=== PATIENT | female | born 1985 | race Caucasian/White ===

== ENCOUNTER 2017-09-09 11:17 | Emergency (ER) | payer MEDICAID ==
--- NOTE | 2017-09-09 12:04 | ER Document Report ---
ED Medical Screen (RME) - General Mode of Arrival: Ambulatory Information source: Patient TRAVEL OUTSIDE OF THE U.S. IN LAST 30 DAYS: No - HPI Patient complains to provider of: Headache Onset: This morning Associated Symptoms: Other - see notes above <KEATON SAUCEDO - Last Filed: 09/09/17 13:07> <KIANNAMARTI Trujillo - Last Filed: 09/09/17 21:05> - General Chief Complaint: Blood Pressure Problem Stated Complaint: HEADACHE Time Seen by Provider: 09/09/17 11:59 Notes: 32-year-old female (15 weeks; A2) with history of hypertension and preeclampsia (with previous ) presents to the ED complaining of posterior head pain, seeing black spots, and dizziness that started earlier this morning while at work. Patient is additionally complaining of vomiting. Patient's hypertension is being managed by her OB and is being prescribed methyldopa which was recently increased to twice a day on 08/30/2017. Patient's OB is Dr. Cedeño of [facility]. (KEATON SAUCEDO) - Related Data Allergies/Adverse Reactions: azithromycin [From Zithromax] Allergy (Verified 09/09/17 11:19) ibuprofen [From Motrin] Adverse Reaction (Verified 09/09/17 11:19) Vomiting Home Medications: Current Home Medications Methyldopa [Aldomet 250 mg Tablet] 1 tab PO BID 09/09/17 [History] Past Medical History - General Information source: Patient - Social History Frequency of alcohol use: None Drug Abuse: None - Past Medical History Cardiac Medical History: Reports: Hx Hypertension Denies: Hx Coronary Artery Disease, Hx Heart Attack Pulmonary Medical History: Denies: Hx Asthma, Hx Bronchitis, Hx COPD, Hx Pneumonia Neurological Medical History: Reports: Hx Migraine. Denies: Hx Cerebrovascular Accident, Hx Seizures Renal/ Medical History: Denies: Hx Peritoneal Dialysis Musculoskeltal Medical History: Denies Hx Arthritis Skin Medical History: Denies Hx MRSA Past Surgical History: Reports: Hx Genitourinary Surgery - rectum repair post delivery, Hx Orthopedic Surgery - left hand, Hx Tonsillectomy - Immunizations Immunizations up to date: Yes Hx Diphtheria, Pertussis, Tetanus Vaccination: Yes <KEATON SAUCEDO - Last Filed: 09/09/17 13:07> Review of Systems - Review of Systems Constitutional: No symptoms reported EENT: No symptoms reported, Other - seeing black spots Cardiovascular: See HPI, Dizziness Respiratory: No symptoms reported Gastrointestinal: See HPI, Vomiting Genitourinary: No symptoms reported Female Genitourinary: No symptoms reported Musculoskeletal: No symptoms reported Skin: No symptoms reported Hematologic/Lymphatic: No symptoms reported Neurological/Psychological: See HPI, Headaches -: Yes All other systems reviewed and negative <KEATON SAUCEDO - Last Filed: 09/09/17 13:07> Physical Exam - General General appearance: Alert In distress: None - HEENT Head: Normocephalic, Atraumatic Eyes: Normal Extraocular movements intact: Yes Pupils: PERRL - Respiratory Respiratory status: No respiratory distress Breath sounds: Normal - Cardiovascular Rhythm: Regular Heart sounds: Normal auscultation - Psychological Associated symptoms: Normal affect, Normal mood <KEATON SAUCEDO - Last Filed: 09/09/17 13:07> - Vital signs Vitals: Temp Pulse Resp BP Pulse Ox 98.4 F 110 H 20 155/105 H 100 09/09/17 11:21 09/09/17 11:21 09/09/17 11:21 09/09/17 11:21 09/09/17 11:21 Course - Laboratory Result Diagrams: 09/09/17 12:35 09/09/17 12:35 <KEATON SAUCEDO - Last Filed: 09/09/17 13:07> - Laboratory Result Diagrams: 09/09/17 12:35 09/09/17 12:35 <MARTI HUTCHISON - Last Filed: 09/09/17 21:05> - Re-evaluation Re-evalutation: 09/09/17 21:05 I personally performed the services described in the documentation, reviewed and edited the documentation which was dictated to the scribe in my presence, and it accurately records my words and actions. (MARTI HUTCHISON) - Vital Signs Vital signs: Temp Pulse Resp BP Pulse Ox 98.2 F 85 15 130/80 H 100 09/09/17 17:29 09/09/17 17:29 09/09/17 17:29 09/09/17 17:29 09/09/17 17:29 - Laboratory Laboratory results interpreted by me: 09/09/17 09/09/17 12:35 12:35 WBC 12.8 H Plt Count 146 L Seg Neutrophils % 78.8 H Absolute Neutrophils 10.1 H Carbon Dioxide 21 L Glucose 70 L Beta HCG, Quant 03284.00 H Doctor's Discharge <SAUCEDOKEATON - Last Filed: 09/09/17 13:07> <MARTI HUTCHISON H - Last Filed: 09/09/17 21:05> - Discharge Clinical Impression: Tension headache, High blood pressure, with 15 completed weeks gestation, Nausea & vomiting Condition: Stable Disposition: HOME, SELF-CARE Additional Instructions: Tension Headache Your problem has been diagnosed as muscle tension headache. This very common type of headache occurs because of tightness in the muscles of the head and neck. The cause may be neck or jaw joint problems, but most commonly the cause is emotional stress. The headache may last hours or days. The treatment of uncomplicated tension headaches is rest and pain medication. Often, the newer antiinflammatory pain medications are prescribed, as these also decrease the irritability of the painful tissues. Muscle relaxers , cold packs, or warm packs are sometimes helpful. Anti-anxiety medication or narcotics are sometimes needed temporarily, but are best avoided in the long run. Your doctor has evaluated your headache problem, and finds no evidence of a serious health problem as a cause for the headache. If your headache becomes more severe, or if new symptoms develop (such as fever, stiff neck, vomiting, or decreasing alertness) you should be re-examined by the physician. //////////////////////////////////////////////////////////////////////////////// //////////////////////////////////////////////////////////////////////////////// /////////////////// Continue your regular medications. Take Tylenol for your headache if needed. Your blood pressure is elevated this evening, then take an extra dose of your Aldomet. Get plenty of rest and sleep. Follow-up with your doctor if not continuing to improve. RETURN TO THE EMERGENCY ROOM IF ANY NEW OR WORSENING SYMPTOMS. Forms: Return to Work Referrals: CARLOS STINSON MD [Primary Care Provider] - Follow up as needed Scribe Documentation - Scribe Written by Scribe:: Carmen Whiting, 09/09/2017 1319 acting as scribe for :: Long <KEATON SAUCEDO - Last Filed: 09/09/17 13:07>
[2017-09-09 12:53] LABS: ABSOLUTE BASOPHILS # (AUTO) 0.1 10^3/uL (0.0-0.2); ABSOLUTE EOSINOPHILS # (AUTO) 0.1 10^3/uL (0.0-0.6); ABSOLUTE LYMPHOCYTES (AUTO) 1.8 10^3/uL (0.5-4.7); ABSOLUTE MONOCYTES (AUTO) 0.8 10^3/uL (0.1-1.4); ABSOLUTE NEUT (AUTO) 10.1 10^3/uL (1.7-8.2); BASOPHILS % (AUTO) 0.5 % (0-2); EOSINOPHILS % (AUTO) 0.6 % (0-6); HEMATOCRIT 37.6 % (36.0-47.0); HEMOGLOBIN 13.3 g/dL (12.0-15.5); HGB HCT DIFFERENCE 2.3; LYMPHOCYTES % (AUTO) 13.8 % (13-45); MEAN CORPUSCULAR HEMOGLOBIN 30.5 pg (27.0-33.4); MEAN CORPUSCULAR HGB CONC 35.4 g/dL (32.0-36.0); MEAN CORPUSCULAR VOLUME 86 fl (80-97); MONOCYTES % (AUTO) 6.3 % (3-13); RED BLOOD COUNT 4.37 10^6/uL (3.72-5.28); RED CELL DISTRIBUTION WIDTH 13.4 % (11.5-14.0); SEGMENTED NEUTROPHILS % (AUTO) 78.8 % (42-78); WHITE BLOOD COUNT 12.8 10^3/uL (4.0-10.5)
[2017-09-09 13:11] LABS: APPEARANCE,URINE SLIGHTLY-CLOUDY; BILIRUBIN,URINE NEGATIVE (NEGATIVE); GLUCOSE, URINE NEGATIVE (NEGATIVE); KETONES,URINE NEGATIVE (NEGATIVE); LEUKOCYTE ESTERASE,URINE NEGATIVE (NEGATIVE); NITRITE,URINE NEGATIVE (NEGATIVE); PROTEIN,URINE NEGATIVE (NEGATIVE); URINE SPECIFIC GRAVITY 1.009; UROBILINOGEN,URINE NEGATIVE mg/dL (<2.0)
[2017-09-09 13:19] LABS: ALANINE AMINOTRANSFERASE 35 U/L (9-52); ALBUMIN 4.1 g/dL (3.5-5.0); ALKALINE PHOSPHATASE 57 U/L (38-126); ANION GAP 14 (5-19); ASPARTATE AMINO TRANSFERASE 24 U/L (14-36); BILIRUBIN,DIRECT 0.2 mg/dL (0.0-0.4); BILIRUBIN,TOTAL 0.4 mg/dL (0.2-1.3); BLOOD UREA NITROGEN 8 mg/dL (7-20); CALCIUM 9.1 mg/dL (8.4-10.2); CARBON DIOXIDE 21 mmol/L (22-30); CHLORIDE 104 mmol/L (98-107); CREATININE RESULT 0.57 mg/dL (0.52-1.25); GLUCOSE 70 mg/dL (75-110); MAGNESIUM 1.8 mg/dL (1.6-2.3); POTASSIUM 4.1 mmol/L (3.6-5.0); TOTAL PROTEIN 6.7 g/dL (6.3-8.2)
[2017-09-09] MEDS ORDERED: PROCHLORPERAZINE EDISYLATE INJ 10 MG/2 ML VIAL IV ONE (14:59)
[2017-09-09] MEDS ORDERED: DIPHENHYDRAMINE HCL 50 MG/ML VIAL IV ONE (14:59)
[2017-09-09] MEDS ORDERED: DEXTROSE 5%-LACTATED RINGERS 1,000 ML IV ONE (15:00)
--- NOTE | 2017-09-09 15:10 | ER Document Report ---
ED Blood Pressure Problem - General Chief Complaint: Blood Pressure Problem Stated Complaint: HEADACHE Time Seen by Provider: 09/09/17 11:59 Mode of Arrival: Ambulatory Information source: Patient, Parent, [facility] Records Notes: This 32-year-old female patient who is approximately 15 weeks comes emergency room complaining of development after getting up this morning of blurred vision, dizziness, headache, nausea with vomiting which she attributes to her headache. She states her blood pressure has been running elevated since yesterday when it was 155/89. She had her Aldomet increased from 250 daily to twice daily on 08/30/2017. She was developing some petechiae about the neck, face and conjunctiva which she attributed to her elevated blood pressure. She did not realize the vomiting is the source of this petechia. The patient has a past history of being on blood pressure medication since age 19 which was probably when she was with her first child who was born 12 years ago. She reports preeclampsia diagnosis at that time but her blood pressure at that delivery was well over 206 she may well have actually been eclamptic. She has been on metoprolol for many years, but was changed to Aldomet with this . 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 The nausea is not bad at this time, the headache is to the back of her head. She goes to a [employer] [facility] in [place], [place]. She works in the [place] area. TRAVEL OUTSIDE OF THE U.S. IN LAST 30 DAYS: No - Related Data Allergies/Adverse Reactions: azithromycin [From Zithromax] Allergy (Verified 09/09/17 11:19) ibuprofen [From Motrin] Adverse Reaction (Verified 09/09/17 11:19) Vomiting Home Medications: Current Home Medications Methyldopa [Aldomet 250 mg Tablet] 1 tab PO BID 09/09/17 [History] Past Medical History - General Information source: Patient, Parent, [facility] Records - Social History Smoking Status: Former Smoker Cigarette use (# per day): No Chew tobacco use (# tins/day): No Smoking Education Provided: No Frequency of alcohol use: None Drug Abuse: None Lives with: Family Family History: Reviewed & Not Pertinent Patient has suicidal ideation: No Patient has homicidal ideation: No - Past Medical History Cardiac Medical History: Reports: Hx Hypertension Pulmonary Medical History: Reports: None EENT Medical History: Reports: None Neurological Medical History: Reports: Hx Migraine Endocrine Medical History: Reports: None Renal/ Medical History: Reports: None GI Medical History: Reports: None Musculoskeltal Medical History: Reports None Psychiatric Medical History: Reports: None Past Surgical History: Reports: Hx Genitourinary Surgery - rectum repair post delivery, Hx Orthopedic Surgery - left hand, Hx Tonsillectomy - Immunizations Immunizations up to date: Yes Hx Diphtheria, Pertussis, Tetanus Vaccination: Yes Review of Systems - Review of Systems Constitutional: No symptoms reported EENT: No symptoms reported Cardiovascular: No symptoms reported Respiratory: No symptoms reported Gastrointestinal: See HPI Female Genitourinary: - 15 weeks Musculoskeletal: No symptoms reported Skin: No symptoms reported Hematologic/Lymphatic: No symptoms reported Neurological/Psychological: Headaches Physical Exam - Vital signs Vitals: Temp Pulse Resp BP Pulse Ox 98.4 F 110 H 20 155/105 H 100 09/09/17 11:21 09/09/17 11:21 09/09/17 11:21 09/09/17 11:21 09/09/17 11:21 Interpretation: Hypertensive - General General appearance: Appears well, Alert In distress: None - HEENT Head: Normocephalic, Atraumatic, Tenderness - Occipital scalp muscles are tender to palpate Eyes: Normal Conjunctiva: Other - Slight petechia Pupils: PERRL Neck: Other - Very tender to palpate the upper posterior cervical muscles near the insertion to the skull. - Respiratory Respiratory status: No respiratory distress Breath sounds: Normal - Cardiovascular Rhythm: Regular Heart sounds: Normal auscultation Murmur: No - Abdominal Inspection: Gravid female Bowel sounds: Normal Tenderness: Nontender - Back Back: Normal - Extremities General upper extremity: Normal inspection General lower extremity: Normal inspection - Neurological Neuro grossly intact: Yes - Psychological Associated symptoms: Normal affect, Normal mood - Skin Skin Temperature: Warm Skin Moisture: Dry Skin Color: Normal Course - Re-evaluation Re-evalutation: 09/09/17 16:21 Headache is much better, blood pressure is down, she is hungry and anxious to go home. I have reviewed my feelings with her that the headache, the petechiae are not caused by the blood pressure. The blood pressure was probably elevated due to the headache as the pressure came down when we treated her headache. The petechiae was due to the vomiting and retching and I explained the pathophysiology behind that. - Vital Signs Vital signs: Temp Pulse Resp BP Pulse Ox 98.4 F 110 H 20 155/105 H 100 09/09/17 11:21 09/09/17 11:21 09/09/17 11:21 09/09/17 11:21 09/09/17 11:21 - Laboratory Result Diagrams: 09/09/17 12:35 09/09/17 12:35 Laboratory results interpreted by me: 09/09/17 09/09/17 12:35 12:35 WBC 12.8 H Plt Count 146 L Seg Neutrophils % 78.8 H Absolute Neutrophils 10.1 H Carbon Dioxide 21 L Glucose 70 L Beta HCG, Quant 18158.00 H Discharge - Discharge Clinical Impression: Tension headache, with 15 completed weeks gestation High blood pressure Qualifiers: Hypertension type: essential hypertension Qualified Code(s): I10 - Essential ( primary) hypertension Nausea & vomiting Qualifiers: Vomiting type: unspecified Vomiting Intractability: non-intractable Qualified Code(s): R11.2 - Nausea with vomiting, unspecified Condition: Stable Disposition: HOME, SELF-CARE Additional Instructions: Tension Headache Your problem has been diagnosed as muscle tension headache. This very common type of headache occurs because of tightness in the muscles of the head and neck. The cause may be neck or jaw joint problems, but most commonly the cause is emotional stress. The headache may last hours or days. The treatment of uncomplicated tension headaches is rest and pain medication. Often, the newer antiinflammatory pain medications are prescribed, as these also decrease the irritability of the painful tissues. Muscle relaxers , cold packs, or warm packs are sometimes helpful. Anti-anxiety medication or narcotics are sometimes needed temporarily, but are best avoided in the long run. Your doctor has evaluated your headache problem, and finds no evidence of a serious health problem as a cause for the headache. If your headache becomes more severe, or if new symptoms develop (such as fever, stiff neck, vomiting, or decreasing alertness) you should be re-examined by the physician. //////////////////////////////////////////////////////////////////////////////// //////////////////////////////////////////////////////////////////////////////// /////////////////// Continue your regular medications. Take Tylenol for your headache if needed. Your blood pressure is elevated this evening, then take an extra dose of your Aldomet. Get plenty of rest and sleep. Follow-up with your doctor if not continuing to improve. RETURN TO THE EMERGENCY ROOM IF ANY NEW OR WORSENING SYMPTOMS. Forms: Return to Work
[2017-09-09 17:31] VITALS: BP 130/80
== END 2017-09-09 17:15 | disposition home or self-care (01) ==
LOC: ER 11:17
DX: O10.912 Unspecified pre-existing hypertension complicating pregnancy, second trimester (principal); G44.209 Tension-type headache, unspecified, not intractable; O21.9 Vomiting of pregnancy, unspecified; Z3A.15 15 weeks gestation of pregnancy; Z88.3 Allergy status to other anti-infective agents; Z88.6 Allergy status to analgesic agent; Z79.84 Long term (current) use of oral hypoglycemic drugs
CPT/HCPCS: 99284; 96361; 96374; 96375; 36415; 84702; 83735; 85025; 80053; 81001; J1200; J0780

== ENCOUNTER 2019-11-25 14:52 | Emergency (ER) | payer MEDICAID, OTHER ==
--- NOTE | 2019-11-25 15:15 | ER Document Report ---
ED Hand/Wrist Injury - General Chief Complaint: Hand Injury Stated Complaint: RIGHT hand PINKY FINGER PAIN, SWELLING Time Seen by Provider: 11/25/19 15:09 Primary Care Provider: [facility] [Provider Group] - 11/26/19 CARLOS STINSON MD [NO LOCAL MD] - Follow up as needed Mode of Arrival: Ambulatory Information source: Patient Notes: 34-year-old female presented to ED for complaint of pain and swelling to the right hand radial side. She states she was outside in the yard playing punching a punching bag there was cemented into the ground. She punched really hard and now has pain and swelling down the fifth metacarpal and fifth phalanges. It is red and swollen. There is some pain to the fourth finger also. She is alert oriented respirations regular nonlabored speaking in full sentences. She states she did it about 1130 this morning. She states she has had ibuprofen 800 mg since she injured it. States she has been elevating and icing the injury. TRAVEL OUTSIDE OF THE [place] IN LAST 30 DAYS: No - HPI Injury to: Hand, Ring finger, Small finger Onset: This morning Where: [employer] [place] Timing: Better Quality of pain: Throbbing Severity: Moderate Pain Level: 4 Context: Blow - Punched a cemented in punching bag - Related Data Allergies/Adverse Reactions: azithromycin [From Zithromax] Allergy (Verified 09/09/17 11:19) ibuprofen [From Motrin] Adverse Reaction (Verified 09/09/17 11:19) Vomiting Past Medical History - General Information source: Patient - Social History Smoking Status: Current Every Day Smoker Cigarette use (# per day): Yes - 4 cigarettes a day Smoking Education Provided: Yes - 4 minutes Frequency of alcohol use: None Drug Abuse: None Occupation: [employer] 2 Lives with: Alone - With 2 children Family History: Reviewed & Not Pertinent Patient has suicidal ideation: No Patient has homicidal ideation: No - Past Medical History Cardiac Medical History: Reports: Hx Hypertension Pulmonary Medical History: Reports: None EENT Medical History: Reports: None Neurological Medical History: Reports: Hx Migraine Endocrine Medical History: Reports: None Renal/ Medical History: Reports: None Malignancy Medical History: Reports: None GI Medical History: Reports: None Musculoskeletal Medical History: Reports Hx Musculoskeletal Trauma - Left hand with surgery Skin Medical History: Reports None Psychiatric Medical History: Reports: None Traumatic Medical History: Reports: Hx Fractures - Left hand Infectious Medical History: Reports: None Past Surgical History: Reports: Hx Genitourinary Surgery - rectum repair post delivery, Hx Orthopedic Surgery - left hand steel thomas, Hx Tonsillectomy - Immunizations Immunizations up to date: Yes Hx Diphtheria, Pertussis, Tetanus Vaccination: Yes Review of Systems - Review of Systems Constitutional: No symptoms reported EENT: No symptoms reported Cardiovascular: No symptoms reported Respiratory: No symptoms reported Gastrointestinal: No symptoms reported Genitourinary: No symptoms reported Female Genitourinary: No symptoms reported Musculoskeletal: Other - Right hand fourth and fifth finger pain and swelling Skin: No symptoms reported Hematologic/Lymphatic: No symptoms reported Neurological/Psychological: No symptoms reported -: Yes All other systems reviewed and negative Physical Exam - Vital signs Vitals: Temp Pulse Resp BP Pulse Ox 97.9 F 92 18 161/114 H 98 11/25/19 14:53 11/25/19 14:53 11/25/19 14:53 11/25/19 14:53 11/25/19 14:53 Interpretation: Normal - General General appearance: Appears well, Alert - HEENT Head: Normocephalic, Atraumatic Eyes: Normal Pupils: PERRL - Respiratory Respiratory status: No respiratory distress Chest status: Nontender Breath sounds: Normal Chest palpation: Normal - Cardiovascular Rhythm: Regular Heart sounds: Normal auscultation Murmur: No - Abdominal Inspection: Normal Distension: No distension Bowel sounds: Normal Tenderness: Nontender Organomegaly: No organomegaly - Back Back: Normal, Nontender - Extremities General upper extremity: Normal color, Normal temperature General lower extremity: Normal inspection, Nontender, Normal color, Normal ROM, Normal temperature, Normal weight bearing. No: Lesly's sign Shoulder: Normal Arm: Normal Elbow: Normal Forearm: Normal Wrist: Normal Hand: Tender, Ecchymosis, No evidence of human bite, No evidence of FB, Swelling. No: Abrasion, Deformity, Dislocation, Instability, Laceration, Nail injury, Tendon deficit Hip: Normal - Neurological Neuro grossly intact: Yes Cognition: Normal Orientation: AAOx4 [place] Coma Scale Eye Opening: Spontaneous [place] Coma Scale Verbal: Oriented [place] Coma Scale Motor: Obeys Commands [place] Coma Scale Total: 15 Speech: Normal Motor strength normal: LUE, RUE, LLE, RLE Sensory: Normal - Psychological Associated symptoms: Normal affect, Normal mood - Skin Skin Temperature: Warm Skin Moisture: Dry Skin Color: Normal Course - Re-evaluation Re-evalutation: 11/25/19 16:04 X-ray discussed with patient and written report of x-ray given to patient. X- ray was shown to patient so she saw exactly where the break was. Patient was instructed she definitely needs to follow-up with orthopedics this may need surgical repair or at least further treatment. Patient was discharged home with a sixpack of [place] and a boxers splint with sling. Patient verbalized understanding and agreement with treatment plan. - Vital Signs Vital signs: Temp Pulse Resp BP Pulse Ox 97.8 F 96 16 158/102 H 99 11/25/19 16:19 11/25/19 16:19 11/25/19 16:19 11/25/19 16:19 11/25/19 16:19 - Diagnostic Test Radiology reviewed: Image reviewed, Reports reviewed Procedures - Immobilization Right Hand Time completed: 16:03 Pre-Proc Neuro Vasc Exam: Normal Immobilizer type: Ulnar - Boxer's splint, Sling Performed by: PCT Post-Proc Neuro Vasc Exam: Normal Alignment checked and good: No - Checked unchanged needs orthopedic referral Discharge - Discharge Clinical Impression: Fracture of fifth metacarpal bone Qualifiers: Encounter type: initial encounter Fracture type: closed Metacarpal location: shaft Fracture alignment: displaced Laterality: right Qualified Code(s): S62.326A - Displaced fracture of shaft of fifth metacarpal bone, right hand, initial encounter for closed fracture Condition: Stable Disposition: HOME, SELF-CARE Additional Instructions: Fractured Fifth Metacarpal (Boxer's) You have a fracture of the fifth metacarpal bone in the hand, often called a Boxer's Fracture. The fracture is usually caused by striking the knuckle against a hard surface -- such as hitting a wall with the fist. This fracture heals well. Some degree of angle in the fracture is perfectly acceptable, resulting in only a slightly rounder knuckle. Your physician has determined whether your fracture could benefit from "setting", and has outlined a treatment plan for you. The usual treatment is splinting for four to six weeks -- a cast is not usually necessary. At first, the injury should be elevated and ice packed. Contact the doctor at once if swelling or pain becomes severe, or if numbness develops. Splint Pending Casting Your injury can't be casted until the swelling has subsided. Therefore, a temporary splint has been placed to protect the injury. Full use of an injured area is not possible in a splint. You should follow the doctor's instructions concerning rest, ice, and elevation of the injury. Never do anything which causes pain under the splint. Keep the splint on ALL THE TIME until you return for casting. If there is unexpected severe pain, or numbness, discoloration, or swelling beyond the splint, you should return at once. Oral Narcotic Medication You have been given a prescription for pain control. This medication is a narcotic. It's best taken with food, as nausea can result if taken on an empty stomach. Don't operate machinery or drive within six hours of taking this medication. Do not combine this medicine with alcohol, or with any medication which can cause sedation (such as cold tablets or sleeping pills) unless you get permission from the physician. Narcotics tend to cause constipation. If possible, drink plenty of fluids and eat a diet high in fiber and fruits. Ice & Elevation Apply ice packs frequently against the painful area. Many different schedules are recommended, such as "20 minutes on, 20 minutes off" or "one hour ice, two hours rest." If you need to work, you may need to go longer between ice treatments. You should plan to have the area ice packed AT LEAST one-fourth of the time. The ice should be applied over the wrap, tape, or splint, or over a layer of cloth -- not directly against the skin. Some ice bags have a built-in cloth and can be put directly on the skin. Your injured part should be elevated as much as possible over the next 48 hours. Try to keep the injury above the level of the heart. Avoid use of the injured area. Elevation and rest will decrease the swelling. FOLLOW-UP CARE: If you have been referred to a physician for follow-up care, call the [facility] office for an appointment as you were instructed or within the next two days. If you experience worsening or a significant change in your symptoms, notify the physician immediately or return to the Emergency Department at any time for re-evaluation. Forms: Smoking Cessation Education, Return to Work, Elevated Blood Pressure Referrals: CARLOS STINSON MD [NO LOCAL MD] - Follow up as needed [facility] [Provider Group] - 11/26/19
[2019-11-25] MEDS ORDERED: ACETAMINOPHEN 325 MG TABLET PO ONE (15:16)
--- NOTE | 2019-11-25 15:35 | RADIOLOGY REPORT (SQ) ---
EXAM DESCRIPTION: HAND RIGHT 3 VIEWS COMPLETED DATE/TIME: 11/25/2019 3:26 pm REASON FOR STUDY: Punched a punching bag cemented in the ground COMPARISON: None. NUMBER OF VIEWS: 3. Right hand LIMITATIONS: None. FINDINGS: Fracture through the distal shaft of the 5th metacarpal with approximately 50 apex dorsal angulation. Other bones are intact. OTHER: No other significant finding. IMPRESSION: 5th metacarpal fracture with angulation. TECHNICAL DOCUMENTATION: JOB ID: [id number] Reading location - IP/workstation name: [email or web address]
[2019-11-25] MEDS ORDERED: HYDROCODONE/ACETAMINOPHEN 5-325 MG (6 TAB/ER DISP) PO PRN (15:52)
[2019-11-25 16:21] VITALS: BP 158/102
== END 2019-11-25 16:19 | disposition home or self-care (01) ==
LOC: ER 14:52
PROC: 2W3CX1Z Immobilization of Right Lower Arm using Splint (ICD-10-PCS; principal; 2019-11-25)
DX: S62.326A Displaced fracture of shaft of fifth metacarpal bone, right hand, initial encounter for closed fracture (principal); M79.644 Pain in right finger(s); M79.89 Other specified soft tissue disorders; W22.8XXA Striking against or struck by other objects, initial encounter; Z79.899 Other long term (current) drug therapy; F17.210 Nicotine dependence, cigarettes, uncomplicated; I10 Essential (primary) hypertension
CPT/HCPCS: 99283; 99406